=== PATIENT | female | born 1950 | race Caucasian/White ===

== ENCOUNTER → 2016-10-24 | Outpatient (CLI) | payer OTHER, MEDICARE ==
--- NOTE | 2016-10-25 08:01 | DX ---
DEXA Bone Densitometry Technique: DEXA scan was performed on Live[employer] Discovery W Bone Densitometer Indication: Osteopenia Comparator Study: None Results: Lumbar Spine BMD: 0.922 T-score: -0.5 Total Hip (Right) BMD: 0.714 T-score: -1.9 Femoral Neck (Right) BMD: 0.550 T-score: -2.7 Total Hip (Left) BMD: 0.734 T-score: -1.7 Femoral Neck (Left) BMD: 0.570 T-score: -2.5 1/3 Radius BMD: 0.651 T-score: -0.6 CONCLUSION: Osteoporosis based on T score less than -2.5 in the femoral neck region ADDITIONAL COMMENTS: By FRAX calculation, the estimated 10 year risk of any osteoporotic fracture is 15%. The estimated 10 year risk of hip fracture is 3.8%. This patient meets the National Osteoporosis Foundation guidelines for pharmacologic treatment based on T score less than -2.5 in the femoral neck and 10 year hip fracture risk greater than 3%. Consider repeating the study in 2 years. Lumbar spine analysis only included L1 and L2. NOTE: The risk of osteoporotic fractures increases approximately twofold for each 1.0 SD decrease in T-score. The T-score represents the standard deviations from a young normal, same sex, reference po pulation. Low bone density is not the only risk factor for fracture. Clinical factors to consider include fall risk, previous osteoporotic fractures, family history of fractures, smoking, and low body weight. Patients who have an unexpectedly low BMD may need to be evaluated for secondary causes of low bone m ineral density. In comparing the present study to a prior study, lack of a significant increase or decrease in BMD ma y signify efficacy of the patient's present treatment. Bone mineral density measurements performed with densitometers produced by different manufacturers ar e not comparable. For the most reproducible BMD measurement, subsequent exams should be performed on the same densitometer.
== END ==
LOC: BMCIMAGING 09:52
PROVIDERS: ATTEND Internal Medicine
DX: Z13.820 Encounter for screening for osteoporosis (principal); M85.80 Other specified disorders of bone density and structure, unspecified site

== ENCOUNTER → 2017-04-25 | Outpatient (CLI) | payer OTHER, MEDICARE | LOC: BMCIMAGING 07:49 | PROVIDERS: ATTEND Internal Medicine | DX: Z12.31 Encounter for screening mammogram for malignant neoplasm of breast (principal) | CPT/HCPCS: G0202 ==

== ENCOUNTER 2018-04-11 05:24 | Inpatient (IN) | payer OTHER, MEDICARE ==
[2018-04-11] MEDS ORDERED: GABAPENTIN 300 MG CAP PO ONE (06:03)
[2018-04-11] MEDS ORDERED: ACETAMINOPHEN 500 MG TAB PO ONE (06:03)
[2018-04-11] MEDS ORDERED: ceFAZolin 2 GM/DEXTROSE 100 ML IV ONE (06:03)
[2018-04-11] MEDS ORDERED: LR 1,000 ML IV ONE (06:07)
[2018-04-11] MEDS ORDERED: LIDOCAINE 1% 2 ML INJ ID PRN (06:07)
--- NOTE | 2018-04-11 06:27 | PDHPUP ---
History & Physical Update H&P update statement: This history and physical update is based on an assessment of the patient which was completed after admission or registration (within 24 hours), but prior to the surgery/procedure. H&P update: H&P reviewed & patient examined, no change in patient's condition since H&P completed
[2018-04-11] MEDS ORDERED: CHLORHEXIDINE GLUC HIBICLENS 118 ML BTL TP ONE (06:52)
[2018-04-11] MEDS ORDERED: THROMBIN (BOVINE) 20,000 UNIT VIAL TP ONE (06:52)
[2018-04-11] MEDS ORDERED: BUPIVACAINE 0.25% 30 ML SDV ONE (06:53)
[2018-04-11] MEDS ORDERED: BACITRACIN 50,000 UNITS/10 ML SYR IRR ONE (06:53)
[2018-04-11] MEDS ORDERED: EPINEPHrine 1 MG/ML INJ ONE (07:01)
[2018-04-11] MEDS ORDERED: MIDAZOLAM 2 MG/2 ML VIAL IVP ONE (07:09)
--- NOTE | 2018-04-11 07:10 | PDANEPAE ---
ANE Past Medical History - Cardiovascular History Hx Hypertension: No Hx Arrhythmias: No Hx Chest Pain: No Hx Coronary Artery / Peripheral Vascular Disease: No Hx CHF / Valvular Disease: No Hx Palpitations: No - Pulmonary History Hx COPD: No Hx Asthma/Reactive Airway Disease: No Hx Recent Upper Respiratory Infection: No Hx Oxygen in Use at Home: No Hx Sleep Apnea: No Sleep Apnea Screening Result - Last Documented: Negative - Neurologic History Hx Cerebrovascular Accident: No Hx Seizures: No Hx Dementia: No - Endocrine History Hx Diabetes: No Hypothyroid: No Hyperthyroid: No Obesity: no - Renal History Hx Renal Disorders: No - Liver History Hx Hepatic Disorders: No - Neurological & Psychiatric Hx Hx Neurological and Psychiatric Disorders: Yes Neurological / Psychiatric History Comment: anxiety, panic disorder - Cancer History Hx Cancer: No - Congenital Disorder History Hx 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 anxiety - Chronic Pain History Chronic Pain: Yes (arthritis) - Surgical History Prior Surgeries: 2013 biopsy. 2005 breast reduction. 2018 catarct surgery. endoscopy ANE Review of Systems Review of Systems: - Exercise capacity Exercise capacity: >=4 METS METS (RN): 5 METS ANE Patient History - Allergies Allergies/Adverse Reactions: meperidine HCl [From Demerol] Allergy (Severe, Verified 03/26/18 15:02) Hives NSAIDS (Non-Steroidal Anti-Inflamma [Nsaids] Allergy (Severe, Verified 03/26/18 15:02) Hives allantoin [From Mederma] Allergy (Verified 03/26/18 15:02) emollient combination no. 46 [From Mederma] Allergy (Verified 03/26/18 15:02) escitalopram oxalate [From Lexapro] Allergy (Verified 03/26/18 15:02) Hives polyethylene glycol [From Mederma] Allergy (Verified 03/26/18 15:02) "sensitive to all meds" Allergy (Mild, Uncoded 03/26/18 15:02) metals (nickel) Allergy (Uncoded 03/26/18 15:02) - Home Medications Home Medications: Acyclovir [Zovirax 200 mg (*)] 200 mg PO DAILY 02/13/10 [Last Taken 04/04/18] Ascorbic Acid [Vitamin C 500 mg (*)] 500 - 1,000 mg PO DAILY 02/13/10 [Last Taken 04/04/18] Aspirin [Aspirin 81mg (*)] 81 mg PO DAILY 02/13/10 [Last Taken 04/04/18] Cholecalciferol Vit D3 [Vitamin D3 2000 units tab (OTC)] 2,000 units PO BID 16/07 [Last Taken 04/04/18] Estradiol [Estradiol 0.5 MG (RX)] 0.5 mg PO HS 02/13/10 [Last Taken 04/09/18] MIRTAZAPINE [Remeron 7.5 mg] 7.5 mg PO HS 02/13/10 [Last Taken 04/09/18] Pantoprazole Sodium [Protonix 40mg (*)] 40 mg PO DAILY 02/13/10 [Last Taken 07/19] Fluticasone Nasal [Flonase Nasal [place] (RX)] 1 sprays NASAL DAILY 03/22/18 [ Last Taken 04/10/18] Herbals/Supplements -Info Only 1 ea PO DAILY 03/22/18 [Last Taken 04/04/18] LORazepam [Ativan (*)] 1 mg PO DAILY PRN 03/22/18 [Last Taken 04/04/18] Loperamide HCl [Imodium 2 mg (*)] 2 mg PO PRN PRN 03/22/18 [Last Taken 04/04/18] Montelukast Sodium [Singulair 10 mg (*)] 10 mg PO DAILY 03/22/18 [Last Taken 07/19] Multivitamins [Multivitamin (*)] 1 each PO DAILY 03/22/18 [Last Taken 04/04/18] Progesterone, Micronized [Progesterone] 100 mg PO HS 03/22/18 [Last Taken ] Ranitidine HCl [Zantac 75] 75 mg PO DAILY 03/22/18 [Last Taken 04/08/18] diphenhydrAMINE [Benadryl 25 MG (*)] 25 mg PO BID PRN 03/22/18 [Last Taken 04/08] hydrOXYzine HCL [hydrOXYzine HCL (RX)] 25 mg PO HS 03/22/18 [Last Taken 04/08/18 ] predniSONE 20 mg PO DAILY PRN 03/22/18 [Last Taken Unknown] Pravastatin Sodium 03/26/18 [Last Taken 04/09/18] - NPO status NPO Since - Liquids (Date): 04/10/18 NPO Since - Liquids (Time): 23:00 NPO Since - Solids (Date): 04/10/18 NPO Since - Solids (Time): 20:00 - Anes Hx Anes Hx: post operative nausea and vomiting - Smoking Hx Smoking Status: Former smoker - Alcohol Use Alcohol Use: Rarely - Family Anes Hx Family Anes Hx: neg - N/A Family Hx Anesthesia Complications: none ANE Labs/Vital Signs - Vital Signs Blood Pressure: 165/81 Heart Rate: 83 Respiratory Rate: 16 O2 Sat (%): 97 Height: 161.29 cm Weight: 64.682 kg ANE Physical Exam - Airway Neck exam: FROM Mallampati Score: Class 1 Mouth exam: normal dental/mouth exam - Pulmonary Pulmonary: no respiratory distress, no rales or rhonchi, clear to auscultation - Cardiovascular Cardiovascular: regular rate and rhythym, systolic murmur (II/ murmur) - ASA Status ASA Status: II ANE Anesthesia Plan Anesthesia Plan: general endotracheal anesthesia Total IV Anesthesia: No
[2018-04-11] MEDS ORDERED: LOPERAMIDE HCL 2 MG CAP PO PRN (07:17)
[2018-04-11] MEDS ORDERED: LORazepam 1 MG TAB PO PRN (07:17)
[2018-04-11] MEDS ORDERED: predniSONE 20 MG TAB PO PRN (07:17)
[2018-04-11] MEDS ORDERED: morphINE PCA 30 MG/30 ML PCA IV PRN (07:20)
[2018-04-11] MEDS ORDERED: LIDOCAINE 2% 5 ML SDV ONE (07:20)
[2018-04-11] MEDS ORDERED: NALOXONE HCL 0.4 MG/ML INJ IVP PRN ×2 (07:20→08:05)
[2018-04-11] MEDS ORDERED: ONDANSETRON DISINTEGRATING 4 MG TAB PO PRN (07:20)
[2018-04-11] MEDS ORDERED: DEXAMETHASONE 4 MG/ML VIAL ONE ×3 (07:20→08:06)
[2018-04-11] MEDS ORDERED: BISACODYL 10 MG SUPP PR PRN (07:20)
[2018-04-11] MEDS ORDERED: LACTULOSE 20 GM/30 ML UDCUP PO PRN (07:20)
[2018-04-11] MEDS ORDERED: MAGNESIUM HYDROXIDE 30 ML UDCUP PO PRN (07:20)
[2018-04-11] MEDS ORDERED: ONDANSETRON 4 MG/2 ML VIAL IVP PRN ×2 (07:20→08:10)
[2018-04-11] MEDS ORDERED: HYDROmorphONE/DILAUDID 1 MG/ML INJ IVP PRN (07:20)
[2018-04-11] MEDS ORDERED: RANITIDINE 50 MG/2 ML VIAL ONE (07:21)
[2018-04-11] MEDS ORDERED: ONDANSETRON 4 MG/2 ML VIAL ONE ×2 (07:21→11:51)
[2018-04-11] MEDS ORDERED: ROCURONIUM 50 MG/5 ML VIAL ONE (07:21)
[2018-04-11] MEDS ORDERED: SUCCINYLCHOLINE CHLORIDE 200 MG/10 ML SYR IVP ONE (07:21)
[2018-04-11] MEDS ORDERED: REMIFENTANIL HCL 1 MG VIAL ONE ×2 (07:21→10:27)
[2018-04-11] MEDS ORDERED: fentaNYL 100 MCG/2 ML INJ ONE ×2 (07:22→12:31)
[2018-04-11] MEDS ORDERED: PROPOFOL/EMULSION 500 MG/50 ML BOTTLE IV ONE ×2 (07:22→10:28)
[2018-04-11] MEDS ORDERED: PROPOFOL 200 MG/20 ML VIAL ONE (07:22)
[2018-04-11] MEDS ORDERED: NS 1,000 ML IV SCH (07:30)
[2018-04-11] MEDS ORDERED: ACETAMINOPHEN 500 MG TAB PO PRN (08:10)
[2018-04-11] MEDS ORDERED: fentaNYL 100 MCG/2 ML INJ IVP PRN (08:10)
[2018-04-11] MEDS ORDERED: oxyCODONE IR 5 MG TAB PO PRN (08:10)
[2018-04-11] MEDS ORDERED: PHENYLEPHRINE HCL 100 MCG/ML SYR IVP PRN (08:10)
[2018-04-11] MEDS ORDERED: LR 500 ML IV PRN (08:10)
[2018-04-11] MEDS ORDERED: HYDROCODONE/APAP 5/325 TAB PO PRN (08:10)
[2018-04-11] MEDS ORDERED: PHENYLEPHRINE HCL 100 MCG/ML SYR ONE (08:18)
[2018-04-11] MEDS ORDERED: NON-FORMULARY NEW DRUG (Ranitidine Hcl [Zantac 75] 75 MG) PO SCH (09:00)
[2018-04-11] MEDS ORDERED: ceFAZolin 1 GM VIAL ONE (11:32)
[2018-04-11] MEDS ORDERED: PROMETHAZINE HCL 25 MG/ML INJ ONE (12:30)
[2018-04-11] MEDS ORDERED: DIAZEPAM 5 MG/ML 1 ML SYR IVP ONE (12:32)
[2018-04-11] MEDS ORDERED: HYDROmorphONE/DILAUDID 1 MG/ML INJ ONE (12:36)
[2018-04-11] MEDS: HYDROmorphONE/DILAUDID 1 MG/ML INJ IVP PRN ×4 (12:39→13:22)
--- NOTE | 2018-04-11 12:43 | POSTOPPROG ---
Post Op Note Date of Operation: 04/11/18 Surgeon: Taylor Adler Renal Social Worker: Anabel Anesthesiologist: Lisa Anesthesia: GET(General Endotracheal), Local (Specify) Pre-op Diagnosis: lumbar stenosis L2-L4 Post-op Diagnosis: s/p TLIF L2/3 and L3/4 Indication: back and leg pain Procedure: TLIF L2/3 and L3/4 Inf/Abcess present in the surg proc area at time of surgery?: No Depth: Deep Incisional (Fascial) EBL: 100-500 Drains: [place]
--- NOTE | 2018-04-11 12:45 | SOAPPROG ---
SOAP Progress Note Assessment/Plan: Post Op Visit: S: Awake and alert. Pt with expected lower back pain O: AFVSS/PERRLA/EOMI no droop CN 2-12 grossly intact +lt touch 5/5 BUE/BLE = CDI NOLVIA in place and working well A/P: 68 yo female that is s/p TLIF at L2/3 and L3/4 -orders in place -brace when out of bed -PT/OT -call with any questions or concerns -pt seen by Dr Adler Objective: Vital Signs Temp Pulse Resp BP Pulse Ox 37.1 C 83 16 97/39 L 100 04/11/18 06:50 04/11/18 08:05 04/11/18 12:31 04/11/18 12:35 04/11/18 12:40 ICD10 Worksheet Patient Problems: Problems Problem Status Onset Arthrodesis status Acute Lumbar radicular pain Acute Lumbar stenosis Acute - ICD10 Problem Qualifiers (1) Lumbar stenosis (2) Lumbar radicular pain (3) Arthrodesis status
--- NOTE | 2018-04-11 13:34 | GOP ---
[f rep st] OPERATIVE REPORT DATE OF OPERATION: 04/11/2018 SURGEON: Alex Adler MD NEUROSURGEON: Billy Adler MD. SOLUTIONS ARCHITECT CONSULTANT: London Little PA-C PREOPERATIVE DIAGNOSIS: Lumbar spondylolisthesis, L2-3, L3-4, severe spinal stenosis L2-3, right lum bosacral radiculopathy, prior lumbar fusion, L4-5, L5-S1, lumbar degenerative disk disease, L2-3, L3- 4. POSTOPERATIVE DIAGNOSIS: Lumbar spondylolisthesis, L2-3, L3-4, severe spinal stenosis L2-3, right dejuan mbosacral radiculopathy, prior lumbar fusion, L4-5, L5-S1, lumbar degenerative disk disease, L2-3, L3 -4. PROCEDURE PERFORMED: Posterolateral and intervertebral arthrodesis L2-3, L3-4 (03324, [id number]), flight attendant inflight services ior segmental instrumentation, L2, L3, L4, same incision bone graft harvest, microscope, placement of biomechanical intervertebral device L2-3, L3-4, spinal stereotaxy, posterior segmental instrumentati on, L2, L3, L4. FINDINGS: ESTIMATED BLOOD LOSS: 250 cc. INDICATIONS: The patient is a 68-year-old female with a prior history of a two-level fusion at L4-5, L5-S1. She did appear to have a posterior lateral arthrodesis at L4-5 and a solid intervertebral an d posterior lateral arthrodesis at L5-S1. She developed terrible radiating pain in the right leg and had severe stenosis at L2-3. She also had a terrible facet arthropathy at L3-4 and a mild spondylol isthesis at both levels. I suggested extension of her prior fusion up to L2-3, L3-4. The risk of sc rew and hardware malposition, malfunction, nerve injury, spinal fluid leak, continued symptoms, adjac ent segment disease, pseudoarthrosis was discussed. She understood these risks, and she wanted to pr oceed. DESCRIPTION OF PROCEDURE: The patient was taken to the operating room, placed in supine position. G eneral anesthesia was begun. She was flipped prone onto the Chuck table. Care was taken to pad al l points of contact. Her back was sterilely prepped and draped in usual fashion. A localizing x-ray was taken. She had a very large curvilinear incision extending from about the L2 spinous process al l the way down to the posterior superior iliac spine from her prior surgery. We plan to extend her p rior incision and keep it in the midline, and after she was sterilely prepped and draped, we did make a midline incision from the spinous process of L1 down to the spinous process of L4. The subcutaneo us tissue was dissected using Bovie cautery bilaterally with subperiosteal dissection made down the L 2, L3, L4 lamina. The facet joints at L2-3, L3-4 were extremely hypertrophic and we used a high-spee d drill to denude these facet joints. We preserved the L1-2 facet joint. We decorticated the transv erse processes. We attached the Stealth reference frame to the L2 spinous process, performed an O-ar m spin and using frame of Stealth stereotaxy, placed pedicle screws bilaterally at L2, L3, and L4. T hey all stimulated at acceptable levels. An O-arm spin was made, and they were all in excellent posi tion. We took 70 mm rods and placed them between the screws distracted between L2 and L4 and got ady e reduction of the spondylolisthesis. Finally tightened the cap screws on top of the rods and then r emoved all the soft tissue the bone at L2, 3, 4. We then harvested the L3 and the inferior L2 spinou s process for autologous grafting purposes. We drilled a bilateral laminectomy at L2-3 and a right h emilaminectomy of L3-4 completely removing the right facets at L2-3, L3-4 for our access to the inter vertebral space. We did perform bilateral decompressions at L2-3 under the microscope and got great decompression of the central thecal sac and the nerves on each side, and we did it on the right side at L3-4. Both facet joints on the right at L2-3, 3-4 were removed. We coagulated some epidural vein s. We incised the L2-3 disk, removed the disk and the cartilaginous endplates. We then went to L3-4 way where we removed the disk and removed the cartilaginous endplates. We roughened the subchondral bone at each level to create arthrodesis. Then, took BMP and bone autograft and placed it into each disk space followed by an expandable 8 x 28 mm cage at L2-3 and a 10 x 28 mm expandable cage at L3-4 . They were each expanded under fluoroscopic guidance, and a final x-ray was taken, and they were ni tg placed within the vertebral interspace and they expanded quite nicely. We then decorticated all the remaining bone posterolaterally, placed BMP and bone posterolaterally bilaterally. We used a to joss of 4 mg of BMP for the surgery. The subfascial drain was placed. We closed the incision in mult iple layers using Vicryl sutures. The patient was reversed from anesthesia, extubated, and transferr ed to recovery room in stable condition. There were no complications. COMPLICATIONS: None. /[id number]/MODL
[2018-04-11] MEDS ORDERED: PROMETHAZINE HCL 25 MG/ML INJ IVP PRN (13:41)
--- NOTE | 2018-04-11 14:16 | PDMN ---
Medical Necessity Medical necessity: [facility] IP only surgery, cpt 37772 & [id number] Lumbar Fusion (L2- L4 TLIF)
[2018-04-11] MEDS ORDERED: LORazepam 2 MG/ML INJ ONE (14:37)
[2018-04-11] MEDS: ACETAMINOPHEN 500 MG TAB PO SCH ×2 (14:43→22:16)
[2018-04-11] MEDS: GABAPENTIN 300 MG CAP PO SCH ×2 (14:43→22:13)
[2018-04-11] MEDS ORDERED: LORazepam 2 MG/ML INJ IVP ONE (14:45)
[2018-04-11] MEDS: CHOLECALCIFEROL VIT D3 2,000 UNITS TAB/CAP PO SCH ×2 (15:44→22:12)
[2018-04-11] MEDS: FLUTICASONE NASAL 120 SPRAYS/16 GM MDI NS SCH (15:44)
[2018-04-11] MEDS: MONTELUKAST SODIUM 10 MG TAB PO SCH (15:44)
[2018-04-11] MEDS: ACYCLOVIR 200 MG CAP PO SCH (15:44)
[2018-04-11] MEDS: FAMOTIDINE 20 MG TAB PO SCH ×2 (15:44→22:10)
[2018-04-11] MEDS: PANTOPRAZOLE SODIUM 40 MG TAB PO SCH (15:45)
[2018-04-11] MEDS: SENNOSIDES/DOCUSATE SODIUM TAB PO SCH ×2 (15:45→22:12)
--- NOTE | 2018-04-11 15:51 | POSTANESTH ---
Post Anesthetic Evaluation Cardiovascular Status: Normal, Stable Respiratory Status: Normal, Stable Level of Consciousness/Mental Status: Can Participate in Eval Pain Control: Inadeq, Add Tx Required Nausea/Vomiting Control: Inadeq, Add Tx Reqired Complications Possibly Related to Anesthesia: None Noted
[2018-04-11] MEDS: METHOCARBAMOL 750 MG TAB PO PRN (17:32)
[2018-04-11] MEDS: oxyCODONE IR 5 MG TAB PO PRN (17:32)
[2018-04-11] MEDS ORDERED: HYDROCORTISONE 100 MG/2 ML VIAL IVP ONE (19:00)
[2018-04-11] MEDS: ceFAZolin 2 GM/DEXTROSE 100 ML IV SCH (19:10)
[2018-04-11] MEDS: MIRTAZAPINE 15 MG TAB PO SCH (22:10)
[2018-04-11] MEDS: hydrOXYzine HCL 25 MG TAB PO SCH (22:12)
[2018-04-11] MEDS: ESTRADIOL 0.5 MG TAB PO SCH (22:12)
[2018-04-11] MEDS: PROGESTERONE,MICR 100 MG CAP PO SCH (22:12)
[2018-04-12] MEDS: ceFAZolin 2 GM/DEXTROSE 100 ML IV SCH (02:48)
[2018-04-12] MEDS: METHOCARBAMOL 750 MG TAB PO PRN (02:52)
[2018-04-12] MEDS: ACETAMINOPHEN 500 MG TAB PO SCH ×3 (05:10→21:03)
[2018-04-12] MEDS: GABAPENTIN 300 MG CAP PO SCH ×3 (05:10→21:02)
[2018-04-12 05:33] LABS: PLATELET COUNT 157 10^3/uL (150-400)
[2018-04-12] MEDS ORDERED: HYDROCORTISONE 100 MG/2 ML VIAL IVP ONE (07:00)
[2018-04-12] MEDS: CHOLECALCIFEROL VIT D3 2,000 UNITS TAB/CAP PO SCH ×2 (09:02→21:02)
[2018-04-12] MEDS: PANTOPRAZOLE SODIUM 40 MG TAB PO SCH (09:02)
[2018-04-12] MEDS: SENNOSIDES/DOCUSATE SODIUM TAB PO SCH ×2 (09:02→21:02)
[2018-04-12] MEDS: ACYCLOVIR 200 MG CAP PO SCH (09:02)
[2018-04-12] MEDS: FAMOTIDINE 20 MG TAB PO SCH ×2 (09:02→21:02)
[2018-04-12] MEDS: oxyCODONE IR 5 MG TAB PO PRN ×5 (09:03→22:15)
[2018-04-12] MEDS: MONTELUKAST SODIUM 10 MG TAB PO SCH (09:03)
[2018-04-12] MEDS ORDERED: NS BOLUS 500 ML (Wide open) IV ONE (10:00)
--- NOTE | 2018-04-12 10:06 | ASMTCMCOM ---
CM Note CM Note Notes: Patient is POD #1 TLIF L2/3 and L3/4. We spoke about discharge planning, and she anticipates that she might need rehab for a few days. [place] Her son Tj and friend Josephine can check on her. We discussed options, and she is ok with a referral to [facility]. I'll send preliminary notes. Case Management will follow. Date Signed: 04/12/2018 10:05 AM Electronically Signed By:Lauren Sandoval RN
--- NOTE | 2018-04-12 10:56 | NEUSURGPN ---
Date of Surgery: 04/11/18 Post Op Day: 1 Assessment/Plan: Assessment: 68 yo female that is s/p TLIF at L2/3 and L3/4 POD#1 Plan: -PT/OT -Wear brace when out of bed, patient was given brace prior to surgery -Pain management -Xrays pending -Case management, eval for dispo options. Patient lives alone -Patient had hypotensive episode when getting oob this am, 500 NS bolus given. H /H 28/06 -NOLVIA in place, ok to remove today -Please call neurosurgery with any questions/concerns Subjective: Feeling good, expected incisional pain. Objective: AxO x3 5/5 BUE, BLE Incision/dressing CDI NOLVIA patent Neuro Check Frequency: per routine Urinary Catheter in Place: No Catheter Insertion Date: 04/11/18 - Physician Discussed Patient with : Vitor Patient Seen by : Vitor Neurosurgery Physical Exam - Vitals, I&O, Labs I and O 04/11/18 04/12/18 04/13/18 05:59 05:59 05:59 Intake Total 4700 Output Total 3535 Balance 1165 Weight 64.682 kg Intake: Oral (ml) 650 IV Intake (ml) 3300 IV Infused (ml) 750 Ns 1,000 ml @ 75 mls/hr 550 IV CONT ANJELICA Rx#: [id number] ceFAZolin 2 GM/DEXTROSE 200 100 ml @ 200 mls/hr IV Q8H ANJELICA Rx#:[id number] Output: Urine (ml) 2500 Catheter 2500 Estimated Blood Loss (ml) 300 NOLVIA Drain Output (ml) 735 Posterior Back 735 Vital Signs Temp Pulse Resp BP Pulse Ox 36.9 C 81 18 90/49 L 96 04/12/18 08:26 04/12/18 08:26 04/12/18 08:26 04/12/18 08:26 04/12/18 08:26 Laboratory Results 04/12/18 04:51 04/12/18 04:51 ICD10 Worksheet Patient Problems: Problems Problem Status Onset Arthrodesis status Acute Lumbar radicular pain Acute Lumbar stenosis Acute
[2018-04-12] MEDS: FLUTICASONE NASAL 120 SPRAYS/16 GM MDI NS SCH (11:28)
[2018-04-12] MEDS ORDERED: NS 1,000 ML IV SCH (18:00)
[2018-04-12] MEDS: MIRTAZAPINE 15 MG TAB PO SCH (21:00)
[2018-04-12] MEDS: hydrOXYzine HCL 25 MG TAB PO SCH (21:02)
[2018-04-12] MEDS: ESTRADIOL 0.5 MG TAB PO SCH (21:02)
[2018-04-12] MEDS: PROGESTERONE,MICR 100 MG CAP PO SCH (21:02)
[2018-04-13] MEDS: oxyCODONE IR 5 MG TAB PO PRN ×3 (03:34→19:45)
[2018-04-13] MEDS: ACETAMINOPHEN 500 MG TAB PO SCH ×3 (06:02→22:04)
[2018-04-13] MEDS: GABAPENTIN 300 MG CAP PO SCH ×3 (06:02→22:03)
[2018-04-13] MEDS: SENNOSIDES/DOCUSATE SODIUM TAB PO SCH ×2 (07:37→19:52)
[2018-04-13] MEDS: LORazepam 1 MG TAB PO PRN ×2 (07:37→14:36)
[2018-04-13] MEDS: ACYCLOVIR 200 MG CAP PO SCH (07:38)
[2018-04-13] MEDS: MONTELUKAST SODIUM 10 MG TAB PO SCH (07:38)
[2018-04-13] MEDS: PANTOPRAZOLE SODIUM 40 MG TAB PO SCH (07:38)
[2018-04-13] MEDS: FAMOTIDINE 20 MG TAB PO SCH ×2 (07:39→19:47)
[2018-04-13] MEDS: CHOLECALCIFEROL VIT D3 2,000 UNITS TAB/CAP PO SCH ×2 (07:39→19:46)
[2018-04-13] MEDS: diphenhydrAMINE 25 MG CAP PO PRN (08:01)
[2018-04-13] MEDS: FLUTICASONE NASAL 120 SPRAYS/16 GM MDI NS SCH (09:34)
[2018-04-13] MEDS: HYDROCODONE/APAP 5/325 TAB PO PRN (09:53)
--- NOTE | 2018-04-13 14:58 | ASMTCMCOM ---
CM Note CM Note Notes: Pt accepted at [facility]. D/c plan of care: [facility] when medically stable Date Signed: 04/13/2018 02:57 PM Electronically Signed By:GREG Lennon
--- NOTE | 2018-04-13 15:54 | SOAPPROG ---
SOAP Progress Note Assessment/Plan: Assessment: adjust pain meds increase ativan supportive care. Plan: 04/13/18 15:54 Subjective: extremely anxious and complaining of severe lbp Objective: Vital Signs Temp Pulse Resp BP Pulse Ox 37.5 C 88 16 117/56 L 93 04/13/18 07:57 04/13/18 11:33 04/13/18 11:33 04/13/18 11:33 04/13/18 11:33 Laboratory Results 04/12/18 04:51 04/12/18 04:51 04/12/18 04/13/18 04/14/18 05:59 05:59 05:59 Intake Total 4790 6815 Output Total 3765 2405 1200 Balance 1165 822 -1200 maew ICD10 Worksheet Patient Problems: Problems Problem Status Onset Arthrodesis status Acute Lumbar radicular pain Acute Lumbar stenosis Acute
[2018-04-13] MEDS: METHOCARBAMOL 750 MG TAB PO PRN (19:45)
[2018-04-13] MEDS: hydrOXYzine HCL 25 MG TAB PO SCH (19:47)
[2018-04-13] MEDS: MIRTAZAPINE 15 MG TAB PO SCH (19:50)
[2018-04-13] MEDS: PROGESTERONE,MICR 100 MG CAP PO SCH (19:50)
[2018-04-13] MEDS: ESTRADIOL 0.5 MG TAB PO SCH (19:50)
[2018-04-13] MEDS: POLYETHYLENE GLYCOL 3350 17 GM PKT PO PRN (19:56)
[2018-04-14] MEDS: METHOCARBAMOL 750 MG TAB PO PRN ×5 (03:27→22:07)
[2018-04-14] MEDS: oxyCODONE IR 5 MG TAB PO PRN ×5 (03:27→20:50)
[2018-04-14] MEDS: diphenhydrAMINE 25 MG CAP PO PRN (03:29)
[2018-04-14] MEDS: GABAPENTIN 300 MG CAP PO SCH (05:49)
[2018-04-14] MEDS: ACETAMINOPHEN 500 MG TAB PO SCH ×3 (06:13→22:03)
--- NOTE | 2018-04-14 07:54 | NEUSURGPN ---
Assessment/Plan: Assessment: 68 yo female that is s/p TLIF at L2/3 and L3/4 POD#3 Plan: -PT/OT -Wear brace when out of bed, patient was given brace prior to surgery -Pain management - will increase gabapentin to 400mg TID -Bowel protocol for constipation. -Xrays show stable hardware -Case management, eval for dispo options. Patient lives alone. Plan for DC to [facility] monday -Updated Dr Adler -Please call neurosurgery with any questions/concerns Subjective: Pt resting in bed, c/o bilateral anterior groin and thigh pain that feels like nerve pain to her Objective: AAOx3 NAD VSS MAEx4 Motor 5/5 BLE Dressing changed by RN overnight, will have RN recheck today Urinary Catheter in Place: No Catheter Insertion Date: 04/11/18 - Physician Discussed Patient with : Vitor Neurosurgery Physical Exam - Vitals, I&O, Labs I and O 04/13/18 04/14/18 04/15/18 05:59 05:59 05:59 Intake Total 3227 1350 Output Total 2405 2000 400 Balance 822 -650 -400 Intake: Oral (ml) 2300 1350 IV Infused (ml) 927 Ns 1,000 ml @ 100 mls/hr 927 IV CONT ANJELICA Rx#: [id number] Output: Urine (ml) 2300 2000 400 Toilet 2300 2000 400 NOLVIA Drain Output (ml) 105 Posterior Back 105 Other: Number of Voids Toilet 1 1 2 Vital Signs Temp Pulse Resp BP Pulse Ox 36.7 C 88 18 114/63 96 04/13/18 22:42 04/13/18 22:42 04/13/18 22:42 04/13/18 22:42 04/13/18 22:42 Laboratory Results 04/12/18 04:51 04/12/18 04:51 ICD10 Worksheet Patient Problems: Problems Problem Status Onset Arthrodesis status Acute Lumbar radicular pain Acute Lumbar stenosis Acute
[2018-04-14] MEDS: GABAPENTIN 400 MG CAP PO SCH ×3 (08:07→20:50)
[2018-04-14] MEDS: PANTOPRAZOLE SODIUM 40 MG TAB PO SCH (08:09)
[2018-04-14] MEDS: SENNOSIDES/DOCUSATE SODIUM TAB PO SCH ×2 (08:09→19:50)
[2018-04-14] MEDS: ENOXAPARIN 40 MG/0.4 ML SYR SC SCH (08:09)
[2018-04-14] MEDS: MONTELUKAST SODIUM 10 MG TAB PO SCH (08:09)
[2018-04-14] MEDS: ACYCLOVIR 200 MG CAP PO SCH (08:09)
[2018-04-14] MEDS: FAMOTIDINE 20 MG TAB PO SCH ×2 (08:09→19:50)
[2018-04-14] MEDS: CHOLECALCIFEROL VIT D3 2,000 UNITS TAB/CAP PO SCH ×2 (08:09→19:49)
[2018-04-14] MEDS: POLYETHYLENE GLYCOL 3350 17 GM PKT PO PRN (08:10)
[2018-04-14] MEDS ORDERED: POLYETHYLENE GLYCOL 3350 17 GM PKT PO PRN (11:14)
[2018-04-14] MEDS: FLUTICASONE NASAL 120 SPRAYS/16 GM MDI NS SCH (13:28)
[2018-04-14] MEDS: hydrOXYzine HCL 25 MG TAB PO SCH (19:46)
[2018-04-14] MEDS: MIRTAZAPINE 15 MG TAB PO SCH (19:47)
[2018-04-14] MEDS: PRAVASTATIN SODIUM 10 MG TAB PO SCH (19:50)
[2018-04-14] MEDS: ESTRADIOL 0.5 MG TAB PO SCH (19:51)
[2018-04-14] MEDS: PROGESTERONE,MICR 100 MG CAP PO SCH (19:51)
[2018-04-14] MEDS: LORazepam 1 MG TAB PO PRN (23:22)
[2018-04-15] MEDS: oxyCODONE IR 5 MG TAB PO PRN ×5 (01:05→21:15)
[2018-04-15] MEDS: ACETAMINOPHEN 500 MG TAB PO SCH ×2 (05:04→14:56)
[2018-04-15] MEDS: METHOCARBAMOL 750 MG TAB PO PRN ×3 (05:04→21:13)
--- NOTE | 2018-04-15 06:59 | NEUSURGPN ---
Assessment/Plan: Assessment: 68 yo female that is s/p TLIF at L2/3 and L3/4 POD#4 Plan: -PT/OT -Wear brace when out of bed, patient was given brace prior to surgery -Pain management - increased gabapentin to 400mg TID. Will add MS contin 15mg BID. -Bowel protocol for constipation. Had BM yesterday -Xrays show stable hardware -daily dressing changes - some seeping from site -Plan for DC to SNF monday -Updated Dr Adler -Please call neurosurgery with any questions/concerns Subjective: Pt resting in bed, states she had continued pain yesterday. States if she gets her meds late pain is out of control. Objective: AAOx3 NAD VSS MAEx4 Motor 5/5 BLE +LT Incision dressed Urinary Catheter in Place: No Catheter Insertion Date: 04/11/18 - Physician Discussed Patient with : Vitor Neurosurgery Physical Exam - Vitals, I&O, Labs I and O 04/14/18 04/15/18 04/16/18 05:59 05:59 05:59 Intake Total 1350 850 Output Total 2000 850 Balance -650 0 Intake: Oral (ml) 1350 850 Output: Urine (ml) 2000 850 Toilet 2000 850 Other: Number of Voids Toilet 1 1 Number of Stools Toilet 1 Vital Signs Temp Pulse Resp BP Pulse Ox 36.6 C 97 16 123/67 H 93 04/14/18 23:14 04/14/18 23:14 04/14/18 23:14 04/14/18 23:14 04/14/18 23:14 Laboratory Results 04/12/18 04:51 04/12/18 04:51 ICD10 Worksheet Patient Problems: Problems Problem Status Onset Arthrodesis status Acute Lumbar radicular pain Acute Lumbar stenosis Acute
[2018-04-15] MEDS: MONTELUKAST SODIUM 10 MG TAB PO SCH (07:54)
[2018-04-15] MEDS: CHOLECALCIFEROL VIT D3 2,000 UNITS TAB/CAP PO SCH ×2 (07:54→21:12)
[2018-04-15] MEDS: FAMOTIDINE 20 MG TAB PO SCH ×2 (07:54→21:14)
[2018-04-15] MEDS: morphINE SR 15 MG TAB PO SCH ×2 (07:54→21:14)
[2018-04-15] MEDS: ENOXAPARIN 40 MG/0.4 ML SYR SC SCH (07:54)
[2018-04-15] MEDS: PANTOPRAZOLE SODIUM 40 MG TAB PO SCH (07:54)
[2018-04-15] MEDS: ACYCLOVIR 200 MG CAP PO SCH (07:54)
[2018-04-15] MEDS: GABAPENTIN 400 MG CAP PO SCH ×3 (07:54→21:13)
[2018-04-15] MEDS: SENNOSIDES/DOCUSATE SODIUM TAB PO SCH ×2 (07:55→21:18)
[2018-04-15] MEDS: FLUTICASONE NASAL 120 SPRAYS/16 GM MDI NS SCH (08:00)
[2018-04-15] MEDS: hydrOXYzine HCL 25 MG TAB PO SCH (21:12)
[2018-04-15] MEDS: MIRTAZAPINE 15 MG TAB PO SCH (21:13)
[2018-04-15] MEDS: PRAVASTATIN SODIUM 10 MG TAB PO SCH (21:13)
[2018-04-15] MEDS: LORazepam 1 MG TAB PO PRN (21:14)
[2018-04-15] MEDS: ESTRADIOL 0.5 MG TAB PO SCH (21:14)
[2018-04-15] MEDS: PROGESTERONE,MICR 100 MG CAP PO SCH (21:14)
[2018-04-16] MEDS: ACETAMINOPHEN 500 MG TAB PO SCH ×2 (00:01→05:22)
[2018-04-16] MEDS: METHOCARBAMOL 750 MG TAB PO PRN (04:27)
[2018-04-16] MEDS: oxyCODONE IR 5 MG TAB PO PRN (04:27)
[2018-04-16 07:49] VITALS: BP 122/63
--- NOTE | 2018-04-16 08:12 | NEUSURGPN ---
Date of Surgery: 04/11/18 Post Op Day: 5 Assessment/Plan: Assessment: 68 yo female that is s/p TLIF at L2/3 and L3/4 POD#5 Plan: -PT/OT -Wear brace when out of bed -Pain management - increased gabapentin to 400mg TID. Added MS contin 15mg BID. -Bowel protocol for constipation. Had BM Monday -Xrays show stable hardware -Dressing removed, ok to just leave steri strips in place-do draining any longer from NOLVIA site -Plan for DC to SNF today -Patient expressed unhappiness with her hospital stay, will have patient advocate come see patient today prior to discharge -Patient seen by Dr Adler as well -Please call neurosurgery with any questions/concerns Subjective: Sitting in chair, right quad pain Objective: AxO x3 Incision CDI with steri strips MAEx4 5/ BLE Neuro Check Frequency: per routine Urinary Catheter in Place: No Catheter Insertion Date: 04/11/18 - Physician Discussed Patient with : Vitor Patient Seen by : Vitor Neurosurgery Physical Exam - Vitals, I&O, Labs I and O 04/15/18 04/16/18 04/17/18 05:59 05:59 05:59 Intake Total 850 300 Output Total 850 Balance 0 300 Intake: Oral (ml) 850 300 Output: Urine (ml) 850 Toilet 850 Other: Number of Voids Toilet 1 1 Number of Stools Toilet 1 Vital Signs Temp Pulse Resp BP Pulse Ox 36.9 C 88 18 122/63 H 93 04/16/18 07:48 04/16/18 07:48 04/16/18 07:48 04/16/18 07:48 04/16/18 07:48 Laboratory Results 04/12/18 04:51 04/12/18 04:51 ICD10 Worksheet Patient Problems: Problems Problem Status Onset Arthrodesis status Acute Lumbar radicular pain Acute Lumbar stenosis Acute
--- NOTE | 2018-04-16 08:19 | PDIAF ---
- Diagnosis Diagnosis: S/P lumbar fusion Code Status: Full Code - Medication Management Discharge Medications: Medications to Continue on Transfer Acyclovir [Zovirax 200 mg (*)] 200 mg PO DAILY 02/13/10 [Last Taken 04/04/18] Ascorbic Acid [Vitamin C 500 mg (*)] 500 - 1,000 mg PO DAILY 02/13/10 [Last Taken 04/04/18] Aspirin [Aspirin 81mg (*)] 81 mg PO DAILY 02/13/10 [Last Taken 04/04/18] Cholecalciferol Vit D3 [Vitamin D3 2000 units tab (OTC)] 2,000 units PO BID 16/07 [Last Taken 04/04/18] Estradiol 0.5 mg PO HS 02/13/10 [Last Taken 04/09/18] MIRTAZAPINE [Remeron 7.5 mg] 7.5 mg PO HS 02/13/10 [Last Taken 04/09/18] Pantoprazole Sodium [Protonix 40mg (*)] 40 mg PO DAILY 02/13/10 [Last Taken 07/19] Fluticasone Nasal [Flonase Nasal [place]] 1 sprays NASAL DAILY 03/22/18 [Last Taken 04/10/18] Herbals/Supplements -Info Only 1 ea PO DAILY 03/22/18 [Last Taken 04/04/18] LORazepam [Ativan (*)] 1 mg PO DAILY PRN 03/22/18 [Last Taken 04/04/18] Loperamide HCl [Imodium 2 mg (*)] 2 mg PO PRN PRN 03/22/18 [Last Taken 04/04/18] Montelukast Sodium [Singulair 10 mg (*)] 10 mg PO DAILY 03/22/18 [Last Taken 07/19] Multivitamins [Multivitamin (*)] 1 each PO DAILY 03/22/18 [Last Taken 04/04/18] Progesterone, Micronized [Progesterone] 100 mg PO HS 03/22/18 [Last Taken ] Ranitidine HCl [Zantac 75] 75 mg PO DAILY 03/22/18 [Last Taken 04/08/18] diphenhydrAMINE [Benadryl 25 MG (*)] 25 mg PO BID PRN 03/22/18 [Last Taken 04/08] hydrOXYzine HCL [hydrOXYzine HCL (RX)] 25 mg PO HS 03/22/18 [Last Taken 04/08/18 ] Pravastatin Sodium [Pravachol] 10 mg PO HS 04/11/18 [Last Taken 04/09/18] Gabapentin [Neurontin 400 MG (*)] 400 mg PO TID #90 cap 04/16/18 [Last Taken Unknown] Methocarbamol [Robaxin 750 mg (*)] 750 mg PO QID PRN #50 tab 04/16/18 [Last Taken Unknown] morphINE SR [Ms Contin/Oramorph 15 mg (*)] 15 mg PO BID #30 tab 04/16/18 [Last Taken Unknown] oxyCODONE IR [Oxycodone Ir (*)] 5 - 10 mg PO Q4HRS PRN #50 tab 04/16/18 [Last Taken Unknown] Discharge Medications: Refer to the Discharge Home Medication list for PRN reason. 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 No dressing needed over steri strips Activity/Weight Bearing Restrictions: No bending or twisting. Do not lift greater than 10 pounds. Wear brace when out of bed Additional Instructions: No bending or twisting Do not lift greater than 10 pounds Wear brace when out of bed Ok to leave dressing off-leave steri strips in place Ok to shower Do not submerge incision - Follow Up Care Current Providers and Referrals: Chelsey Epstein MD [Primary Care Provider] - Taylor Adler MD [Medical Doctor] - follow up in 2 weeks
[2018-04-16] MEDS: CHOLECALCIFEROL VIT D3 2,000 UNITS TAB/CAP PO SCH (10:02)
[2018-04-16] MEDS: FAMOTIDINE 20 MG TAB PO SCH (10:03)
[2018-04-16] MEDS: PANTOPRAZOLE SODIUM 40 MG TAB PO SCH (10:03)
[2018-04-16] MEDS: MONTELUKAST SODIUM 10 MG TAB PO SCH (10:03)
[2018-04-16] MEDS: ACYCLOVIR 200 MG CAP PO SCH (10:03)
[2018-04-16] MEDS: SENNOSIDES/DOCUSATE SODIUM TAB PO SCH (10:04)
[2018-04-16] MEDS: GABAPENTIN 400 MG CAP PO SCH (10:04)
[2018-04-16] MEDS: morphINE SR 15 MG TAB PO SCH (10:04)
[2018-04-16] MEDS: ENOXAPARIN 40 MG/0.4 ML SYR SC SCH (10:04)
[2018-04-16] MEDS: FLUTICASONE NASAL 120 SPRAYS/16 GM MDI NS SCH (10:12)
[2018-04-16] MEDS: HYDROCODONE/APAP 5/325 TAB PO PRN (10:18)
[2018-04-16] MEDS: LORazepam 1 MG TAB PO PRN (10:19)
--- NOTE | 2018-04-16 11:01 | ASDISCHSUM ---
Discharge Information Plan Status:SNF Medically Cleared to Leave: Discharge Date:04/16/2018 10:59 AM CM D/C Disposition:Half-Way Facility ADT D/C Disposition:Half-Way Facility Projected Discharge Date:04/15/2018 11:00 AM Transportation at D/C:Wheelchair Van Discharge Delay Reason: Follow-Up Date:04/15/2018 11:00 AM Discharge Slot: Final Diagnosis: Placement Information Referral Type:*Chcf/SNF Referral ID:[id number] Provider Name:[facility] Address 1:[address] Address 2: City:[place] Selection Factors: State:[place] Patient Contact Information Contact Name:LEONILA Relationship:Son Address: Work Phone: [facility] Phone: [facility] [[email or web address]] Code:[place] Email: Financial Information Financial Class:Medicare Primary Plan Desc:MEDICARE INPATIENT Primary Plan Number:[id number] Secondary Plan Desc:[employer]ARP/MDR SUPPLEMENT Secondary Plan Number:[id number] Assessment Information [facility] CM Progress Note CM Note CM Note Notes: Patient is POD #1 TLIF L2/3 and L3/4. We spoke about discharge planning, and she anticipates that she might need rehab for a few days. [place] Her son Tj and friend Josephine can check on her. We discussed options, and she is ok with a referral to [facility]. I'll send preliminary notes. Case Management will follow. Date Signed: 04/12/2018 10:05 AM Electronically Signed By:Lauren Sandoval RN [facility] CM Progress Note CM Note CM Note Notes: Pt accepted at [facility]. D/c plan of care: [facility] when medically stable Date Signed: 04/13/2018 02:57 PM Electronically Signed By:GREG Lennon [facility] CM Progress Note CM Note CM Note Notes: Pt medically stable for d/c to [facility]. Orders sent in [employer]. Loren with scheduled transport. RANJANA Meehan to call report. Date Signed: 04/16/2018 11:00 AM Electronically Signed By:GREG Lennon Intervention Information Intervention Type:*IM-Signed Date of Service:04/16/2018 10:16 AM Patient Type:Inpatient Staff Member:Janette Zendejas Hours: Discipline: Severity: Comment:
--- NOTE | 2018-04-16 11:05 | ASMTLACE ---
LACE Length of stay for Answers: 4-6 days current admission Acuity / Level of Answers: Yes Care: Did the patient have an inpatient admission? Comorbidities - select Answers: Opioid dependence all that apply / Chronic pain # of Emergency department Answers: 0 visits in the last 6 months Social determinants Answers: Mental health diagnosis (anxiety, depression, pers onality disorders, etc.) Score: 14 Date Signed: 04/16/2018 11:04 AM Electronically Signed By:GREG Lennon
--- NOTE | 2018-04-24 11:38 | GDS ---
[f rep st] DISCHARGE SUMMARY PRIMARY DIAGNOSIS: Lumbar spondylolisthesis, L2-3, L3-4, severe spinal stenosis L2-3, right lumbosac ral radiculopathy, prior lumbar fusion L4-5, L5-S1, lumbar degenerative disk disease L2-3 and L3-4. OPERATION/PROCEDURE: Posterior lateral intervertebral arthrodesis at L2-3, L3-4 with posterior segme ntal instrumentation L2, L3 and L4 with same incision bone graft harvest. Microscope placement of bi omechanical intervertebral device at L2-3 and L3-4 with segmental instrumentation at L2, L3, and L4 u nder the care of Dr. Billy Adler at [facility] on 04/11/2018. HOSPITAL COURSE: Aletha is a 68-year-old female with a prior history of a 2-level lumbar fusion L4-5, L5-S1. She did appear to have a posterior lateral arthrodesis at L4-5 and solid intervertebral and posterior lateral arthrodesis at L5-S1. She developed terrible radiating pain in the right leg and h ad severe stenosis at L2-3. She also had a terrible facet arthropathy at L3-4 and mild spondylolisth esis at both levels. Suggestion for extension of her fusion of these 2 levels was given. The patien t had failed to improve with conservative management and elected to proceed with surgery. Risks were discussed with the patient, and she understood this and wished to proceed. She underwent the above- mentioned procedure. She tolerated it well and was admitted postoperatively. She was seen on a marv y basis. On 04/13/2018, she underwent x-rays of the lumbar spine, which showed status post L3-4, 4-5 diskectomies with posterior fusion construct with minimal anterior listhesis at the L3-4 level and s light angulation of the interbody disk. She continued to work with PT and OT. She did have some pos toperative pain issues. There were also some issues with hypotension, but she was doing much better after some of her medications were changed as well as given a normal saline bolus. Her drain was wu cynthia in the operating room and eventually removed the next day. She had stayed in the hospital and wa s eventually discharged to a rehab facility once criteria was met. In fact, on 04/16/2018, after wor angel with therapy, she did meet criteria. She was tolerating her brace fine. Her pain was doing wel l with gabapentin, and she did have an addition of MS Contin 15 mg twice daily, which did help as wel l. She had moved her bowels. She has no complaints of urinary issues. Her x-rays were reviewed wit h both the patient and Dr. Adler. Dressing was changed, and her drain was removed intact. The nael ent advocate was involved due to some expressed unhappiness of her hospital stay, and this was addres sed. CONSULTS: None. COMPLICATIONS: None. DISCHARGE CONDITION: Stable and improved. DISCHARGE INSTRUCTIONS: Standard discharge instructions given to the patient following an instrument ed lumbar fusion. We talked about worsening symptoms, new pain, weakness, numbness, tingling, loss o f bowel or bladder control, problems with gait or balance. She will likely follow up with us in the office in 2 weeks for postoperative check and then at 2 months with some x-rays and likely at 3-6 mon ths, likely at a year, a [id number]-half, and 2 years with x-rays when clinically appropriate to ensu re radiographic fusion. The patient will likely need a bone stimulator after her surgery here to helio richter with her fusion process, and this will be arranged. /[id number]/MODL
== END 2018-04-16 10:59 | DRG 455 ==
LOC: F3N 05:24
PROVIDERS: ADMIT Neurological Surgery; ATTEND Neurological Surgery
PROC: 0ST20ZZ Resection of Lumbar Vertebral Disc, Open Approach (ICD-10-PCS; principal; 2018-04-11 07:30)
PROC: 3E0U0GB Introduction of Recombinant Bone Morphogenetic Protein into Joints, Open Approach (ICD-10-PCS; principal; 2018-04-11 07:30)
PROC: 0SG10AJ Fusion of 2 or more Lumbar Vertebral Joints with Interbody Fusion Device, Posterior Approach, Anterior Column, Open Approach (ICD-10-PCS; principal; 2018-04-11 07:30)
PROC: 01NB0ZZ Release Lumbar Nerve, Open Approach (ICD-10-PCS; principal; 2018-04-11 07:30)
PROC: 0SG0071 Fusion of Lumbar Vertebral Joint with Autologous Tissue Substitute, Posterior Approach, Posterior Column, Open Approach (ICD-10-PCS; principal; 2018-04-11 07:30)
DX: M43.16 Spondylolisthesis, lumbar region (principal); M51.16 Intervertebral disc disorders with radiculopathy, lumbar region; M48.061 Spinal stenosis, lumbar region without neurogenic claudication; Z98.1 Arthrodesis status; E78.00 Pure hypercholesterolemia, unspecified; R93.1 Abnormal findings on diagnostic imaging of heart and coronary circulation
CPT/HCPCS: 97116-GP; 97161-GP; 97165-GO; 97530-GO; 97530-GP; 97535-GO; C1713; G8978-GP-CK; G8979-GP-CI; G8980-GP-CI; G8987-GO-CI; G8988-GO-CI; J0171; J0330; J0690; J1100; J1170; J1650; J1720; J2060; J2250; J2270; J2370; J2405; J2550; J2704; J2780; J3010; J3360

== ENCOUNTER → 2018-07-20 | Outpatient (CLI) | payer OTHER, MEDICARE | LOC: BMCIMAGING 08:07 | PROVIDERS: ATTEND Physician Assistant | DX: Z98.1 Arthrodesis status (principal); R93.7 Abnormal findings on diagnostic imaging of other parts of musculoskeletal system ==

== ENCOUNTER → 2018-09-18 | Outpatient (CLI) | payer OTHER, MEDICARE | LOC: BMCIMAGING 14:30 | PROVIDERS: ATTEND Internal Medicine | DX: Z12.31 Encounter for screening mammogram for malignant neoplasm of breast (principal) ==

== ENCOUNTER → 2018-10-24 | Outpatient (CLI) | payer OTHER, MEDICARE | LOC: BMCIMAGING 08:33 | PROVIDERS: ATTEND Orthopaedic Surgery | DX: M16.0 Bilateral primary osteoarthritis of hip (principal); M53.3 Sacrococcygeal disorders, not elsewhere classified ==

== ENCOUNTER → 2018-11-09 | Outpatient (CLI) | payer OTHER, MEDICARE | LOC: BMCIMAGING 09:23 | PROVIDERS: ATTEND Internal Medicine Geriatric Medicine | DX: Z13.820 Encounter for screening for osteoporosis (principal); M81.0 Age-related osteoporosis without current pathological fracture; E03.9 Hypothyroidism, unspecified; Z79.01 Long term (current) use of anticoagulants ==